=== PATIENT | male | born 1980 | race Caucasian/White ===

== ENCOUNTER 2025-06-22 14:31 | Emergency (ER) | payer SELFPAY ==
[2025-06-22 14:32] VITALS: BP 150/95; PULSE 108; RESP 16; TEMP 36.6; O2SAT 95; BMI 32.5
[2025-06-22 14:35] VITALS: BP 150/95; PULSE 93; O2SAT 97
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
[2025-06-22 15:00] LABS: Glucose Urine UA Negative (Normal); Nitrate Urine Negative (Negative); Specific Gravity, Urine 1.021 (1.005-1.030)
[2025-06-22 15:13] LABS: Add Urine Microscopic? YES; UA Manual Slide Review YES
[2025-06-22 15:35] VITALS: BP 137/96; PULSE 88; O2SAT 96
[2025-06-22] MEDS: orphenadrine 30 mg/mL Inj 2 mL 60 MG IM (16:06)
[2025-06-22 16:30] VITALS: BP 135/98; PULSE 81; O2SAT 98
[2025-06-22 17:17] VITALS: BP 146/107; PULSE 93; O2SAT 98
== END 2025-06-22 17:25 | disposition home or self-care (01) ==
PROVIDERS: Emergency Provider Nurse Practitioner
DX: S29.012A Strain of muscle and tendon of back wall of thorax, initial encounter (principal); S39.012A Strain of muscle, fascia and tendon of lower back, initial encounter; V87.7XXA Person injured in collision between other specified motor vehicles (traffic), initial encounter; R91.1 Solitary pulmonary nodule
CPT/HCPCS: 72128; 72131; 81001; 96372; 99284; J1885; J2360; J9999